=== PATIENT | female | born 1995 | race Caucasian/White ===

== ENCOUNTER 2020-11-28 00:43 | Emergency (ER) | payer OTHER ==
[~2020-11-28] VITALS: Ht 177.8 cm; Wt 95.0 kg
--- NOTE | 2020-11-28 00:51 | NUR ---
pt straight backed from canopy for altered mental status likely related to etoh. pt responds with eye opening to her name only. aspitation precautions in place due to pt dry heaving, pt arrives covered in vomit and possibly urine. PIV placed and medicated with zofran. ekg completed. pt attached to all monitoring devices.
[2020-11-28 01:00] LABS: BASOPHILS % (AUTO) 1 % (0-1); EOSINOPHILS % (AUTO) 3 % (1-7); LYMPHOCYTES % (AUTO) 44 % (22-44); MEAN CORPUSCULAR HEMOGLOBIN 30.8 pg (27.0-34.8); MEAN CORPUSCULAR HGB CONC 34.4 g/dL (32.4-35.8); MEAN PLATELET VOLUME 8.3 fL (7.4-10.4); MONOCYTES % (AUTO) 10 % (2-9); NEUTROPHILS % (AUTO) 42 % (42-75); PLATELET COUNT 382 x10^3/uL (130-400); RED BLOOD COUNT 4.66 x10^6/uL (3.82-5.3); RED CELL DISTRIBUTION WIDTH 13.1 % (9.6-15.2)
[2020-11-28] MEDS: PLEASE ENTER ALLERGIES MC SCH ×2 (01:00→01:43)
[2020-11-28] MEDS ORDERED: ONDANSETRON 2MG/ML, 2ML IVPush ONE (01:00)
[2020-11-28 01:05] LABS: ANION GAP 9 mmol/L (5-15); CALCIUM 8.4 mg/dL (8.5-10.1); CHLORIDE 109 mmol/L (98-107); CREATININE 0.95 mg/dL (0.55-1.02)
[2020-11-28 01:06] LABS: ALANINE AMINOTRANSFERASE 22 U/L (12-78); ALBUMIN 4.3 g/dL (3.4-5.0)
[2020-11-28 01:10] LABS: ALKALINE PHOSPHATASE 62 U/L (45-117); BILIRUBIN,TOTAL 0.5 mg/dL (0.2-1.0); TOTAL PROTEIN 8.1 g/dL (6.4-8.2)
--- NOTE | 2020-11-28 01:13 | NUR ---
REPORT TO ALYSSIA RN
--- NOTE | 2020-11-28 01:14 | NUR ---
RECEIVED REPORT ON PT. PT SITTING IN BED WITH HEAD SLUMPPED FORWARD. ON FULL CR MONITOR, AND AIRWAY INTACT, AND GOOD AERATION AND OXYGENATION. IVF INFUSING VIA PIV TO LEFT AC. PIV INTACT, AND FLUSHED EASILY, NO REDNESS OR SWELLING. PTS FAMILY MEMBERS AND FRIENDS CREATED A LARGE UPROAR IN THE WAITING ROOM DEMANDING TO COME BACK, AND WERE TOLD TO WAIT IN ER WAITING ROOM UNTIL PT WAS STABILIZED AND MDS SAW HER. SECURITY TO THE ER WAITING ROOM THE FAMILY AND PTS MOTHER BECOMING BELLIGERANT THEY HAVE ALL BEEN DRINKING AT A DAY [employer]. MOM ADVISED THAT WHEN SHE CALMS DOWN SHE WILL BE BROUGHT BACK AND THAT THE PT IS STABLE AND WELL CARED FOR.
--- NOTE | 2020-11-28 01:22 | NUR ---
PTS BIOLOGICAL MOM BROUGHT BACK TO THE ROOM TO SIT WITH PT. IN SPEAKING WITH THE MOM, WE CAME TO AN UNDERSTANDING OF THE PTS STATUS, AND WHAT WE WOULD LIKE TO HELP THE PT BE MORE COMFORTABLE TO MTF RECOVERY. PT IS ASLEEP AT THIS TIME, AND PTS MOM IS SITTING BEDSIDE PROVIDING COMFORT AND CALM AND COOPERATIVE AT THIS TIME. MOM AGREED WITH THE CONVERSATION WITH THE RN IN REGARDS TO HOW TO COMPORTE HERSELF WHILE WITH THE PT. BOTH STAFF AND PTS FAMILY AGREE AND UNDERSTAND EACH OTHER AT THIS TIME.
--- NOTE | 2020-11-28 01:28 | NUR ---
PTS OTHER FAMILY AND FRIENDS OUT IN THE WAITING ROOM WENT TO REGISTRATION STAFF AND ARE DEMANDING TO SPEAK WITH THE CLOTHING SORTER. CLOTHING SORTER UPDATED AND CALLED.
--- NOTE | 2020-11-28 01:35 | NUR ---
VERBAL READ BACK ORDER WITH DR. LARSEN TO START A 2ND BAG OF NS IVF TO RUN OVER AN HOUR. FIRST NS BAG COMPLETE, STARTED PRIOR TO THIS RN PICKING UP THIS PT.
[2020-11-28 01:36] LABS: MD SCAN
--- NOTE | 2020-11-28 01:36 | NUR ---
PT BEGINNING TO MOVE AND PTS MOM AT BEDSIDE BABY TALKING TO THE PT. PT THROWING UP AGAIN. HAS RECEIVED KARLAAN.
--- NOTE | 2020-11-28 01:38 | NUR ---
PT MOUTH SUCTIONED SHE SPIT UP LOTS OF DROOL AND SOME BILIOUS EMESIS. AIRWAY INTACT, GOOD AERATION AND OXYGENATION ON CR MONITOR. O2 SATS 99%
--- NOTE | 2020-11-28 02:30 | NUR ---
PTS BIOLOGICAL MOM SWITCHED OUT WITH HER STEP MOM SO THEY COULD ALSO VISIT AND SEE THAT PT IS STABLE AND RESTING NOW.
--- NOTE | 2020-11-28 02:30 | NUR ---
PT WAKES UP AND RESPONDS WITH HAND GRASPS TO HER STEP MOM AND ALSO BIOLOGICAL MOM. RAISES HEAD AND MAINTAINS HER OWN AIRWAY. GOOD AERATION AND OXYGENATION.
--- NOTE | 2020-11-28 02:39 | NUR ---
LATE ORDER RECEIVED FOR IVF NS 2 LITERS. 1 LITER INFUSED IMMEDIATELY ON PT ARRIVAL TO T4. FOLLOW UP NS 1 LITER STARTED AFTER, AND IS COMPLETE AT THIS TIME. SEE EMAR.
[2020-11-28] MEDS ORDERED: SODIUM CHLORIDE 0.9% 1,000ML IVBOLUS ONE (03:00)
--- NOTE | 2020-11-28 03:47 | NUR ---
PT RESTING COMFORTABLY, WITH BIOLOGICAL MOM AT BEDSIDE. AIRWAY INTACT, AND GOOD AERATION AND OXYGENATION.
--- NOTE | 2020-11-28 04:41 | NUR ---
PT SLEEPING IN NO ACUTE DISTRESS. AIRWAY INTACT, GOOD AERATION AND OXYGENATION. STEP MOM AT BEDSIDE.
--- NOTE | 2020-11-28 05:33 | NUR ---
PT AWAKENS AND KNOWS WHERE SHE IS AND WHAT HER NAME IS AND WHAT HAPPENED WHEN ASKED. PT SLEEPY AND JUST WANTS TO GO TO HER HOME AND SLEEP IT OFF. PT HAS INTACT AIRWAY AND MANAGING IT WELL. GOOD AERATION AND OXYGENATION. PIV D/C'D AND CATH TIP INTACT, PT TOLERATED WELL. PTS STEPMOM AT BEDSIDE AND THEY ARE READY TO GO HOME. F/U AND D/C INSTRUCTIONS GIVEN TO PT AND STEP MOM AND THEY V/U.
[2020-11-28 05:35] VITALS: BP 109/58
== END 2020-11-28 06:09 | disposition home or self-care (01) ==
LOC: ED 05:30
DX: R41.82 Altered mental status, unspecified (principal); F10.120 Alcohol abuse with intoxication, uncomplicated; G31.2 Degeneration of nervous system due to alcohol; R94.31 Abnormal electrocardiogram [ECG] [EKG]; Y90.0 Blood alcohol level of less than 20 mg/100 ml
CPT/HCPCS: 36415; 80053; 80320; 84703; 85025; 93005; 96374; 99285; J2405; J7030; G0480